=== PATIENT | female | born 1945 | race Caucasian/White ===

== ENCOUNTER 2019-07-06 10:44 | Observation (INO) | payer MEDICARE, BC ==
--- NOTE | 2019-07-06 11:04 | ED ---
Neurological HPI - HPI Summary HPI Summary: This patient is a 73 year old F presenting to [facility] with a chief complaint of spells since 4 days ago 07/02/19. Symptoms aggravated by nothing. Symptoms alleviated by nothing. Patient reports she was sent by doctor. Pt reports symptoms started 4 days ago when she bent over to fiber picker bag and got dizzy, vision went black, fell down steps. Pt reports LOC and denies diaphoretic at time of LOC but reports cold sweats (getting hot and cold) recently. Yesterday pt did not do much yet went to bathroom and had another spell where room was spinning, vision went black, and hit side on table leading to a possible broken toe (4th on right foot) and lateral pain (aggravated by movement). Denies sob, cough, gates, cp (no pressure or heaviness on chest), fever, erythema of eyes, sore throat, abdominal pain, N/V, dysuria, hematuria, myalgia, edema, rash. - History of Current Complaint Chief Complaint: EDDizziness Stated Complaint: DIZZY/SYNCOPE PER PT Time Seen by Provider: 07/06/19 10:52 Hx Obtained From: Patient Hx Last Menstrual Period: Years ago. Onset/Duration: Started days ago - 4, Still Present Pain Intensity: 0 Character: Room Spinning, Dizzy, Visual Changes - black Syncope Context: Loss of Consciousness: Yes Aggravating: Nothing Alleviating: Nothing Associated Signs and Symptoms: Positive: Visual Changes, Loss of Consciousness, Dizziness, Diaphoresis - cold sweats. Negative: Headache, Nausea/Vomiting, Fever, Chest Pain, Shortness of Breath - Allergy/Home Medications Allergies/Adverse Reactions: Allergies Allergy/AdvReac Type Severity Reaction Status Date / Time No Known Allergies Allergy Verified 07/06/19 10:50 Home Medications: Home Medications Calcium Carb, Citrate/Vit D3 [Calcium + D3 ER Tablet] 1 tab PO DAILY 07/06/19 [ History Confirmed 07/06/19] Metronidazole (TOPICAL)(NF) [Metrocream (NF)] 1 applic TOPICAL BEDTIME 07/06/19 [History Confirmed 07/06/19] Pravastatin (NF) [Pravachol (NF)] 10 mg PO DAILY 07/06/19 [History Confirmed ] dilTIAZem HCl [Diltiazem HCl ER] 180 mg PO DAILY 07/06/19 [History Confirmed ] PMH/Surg Hx/FS Hx/Imm Hx Endocrine/Hematology History: Denies: Hx Anticoagulant Therapy, Hx Diabetes, Hx Thyroid Disease Cardiovascular History: Denies: Hx Congestive Heart Failure, Hx Deep Vein Thrombosis, Hx Hypertension , Hx Myocardial Infarction, Hx Pacemaker/ICD Respiratory History: Denies: Hx Asthma, Hx Chronic Obstructive Pulmonary Disease (COPD), Hx Lung Cancer, Hx Pneumonia, Hx Pulmonary Embolism GI History: Denies: Hx Gall Bladder Disease, Hx Gastrointestinal Bleed, Hx Ulcer, Hx Urosepsis History: Denies: Hx Kidney Stones, Hx Renal Disease Neurological History: Denies: Hx Dementia, Hx Migraine, Hx Seizures, Hx Transient Ischemic Attacks (TIA) Psychiatric History: Denies: Hx Anxiety, Hx Depression, Hx Schizophrenia, Hx Bipolar Disorder - Cancer History Hx Chemotherapy: No Hx Radiation Therapy: No - Surgical History Surgery Procedure, Year, and Place: csection Infectious Disease History: No Infectious Disease History: Denies: History Other Infectious Disease, Traveled Outside the [place] in Last 30 Days - Family History Known Family History: Positive: Other - Parkinson's Negative: Diabetes - Social History Alcohol Use: None Hx Substance Use: No Substance Use Type: Reports: None Hx Tobacco Use: No Smoking Status (MU): Never Smoked Tobacco Review of Systems Positive: Skin Diaphoresis. Negative: Fever Negative: Erythema Negative: Sore Throat Negative: Chest Pain Negative: Shortness Of Breath, Cough Negative: Abdominal Pain, Vomiting, Nausea Negative: dysuria, hematuria Positive: Other - right 4th toe pain, lateral pain. Negative: Myalgia, Edema Negative: Rash Neurological: Other - spells (dizziness, room spinning, vision changes, LOC) Positive: Syncope. Negative: Headache All Other Systems Reviewed And Are Negative: Yes Physical Exam - Summary Physical Exam Summary: Constitutional: Well-developed, Well-nourished, Alert. (-) Distressed Skin: Warm, Dry HENT: Normocephalic; Atraumatic Eyes: Conjunctiva normal Neck: Musculoskeletal ROM normal neck. (-) JVD, (-) Stridor, (-) Tracheal deviation Cardio: Rhythm regular, rate normal, Heart sounds normal; Intact distal pulses; The pedal pulses are 2+ and symmetric. Radial pulses are 2+ and symmetric. (-) Murmur Pulmonary/Chest wall: (-) Respiratory distress, (-) Wheezes, small crackles in both bases Abd: Soft, (-) tenderness, (-) Distension, (-) Guarding, (-) Rebound Musculoskeletal:4th toe metatarsophalangeal joint in ecchymotic and tender to palpation, tenderness over left 3rd,4th,5th ribs laterally Lymph: (-) Cervical adenopathy Neuro: Neuro: Alert, Oriented x3, Strength normal, Cranial nerves II-XII are grossly intact. (-) Dysmetria, (-) Nystagmus, (-) Ataxia by finger to nose testing, (-) Sensory deficit. Psych: Mood and affect Normal Triage Information Reviewed: Yes Vital Signs On Initial Exam: Initial Vitals Temp Pulse Resp BP Pulse Ox 98.3 F 70 18 200/83 97 07/06/19 10:46 07/06/19 10:46 07/06/19 10:46 07/06/19 10:46 07/06/19 10:46 Vital Signs Reviewed: Yes Procedures - Sedation Patient Received Moderate/Deep Sedation with Procedure: No - Splinting Lower Extremity Location: right 4th toe to 3rd toe Hand-Made Type: issac tape Splint Applied by Provider: Arun Bustill[facility] - Vital Signs Vital Signs Temp Pulse Resp BP Pulse Ox 07/06/19 10:46 98.3 F 70 18 200/83 97 - Laboratory Result Diagrams: 07/06/19 11:11 07/06/19 11:11 Lab Statement: Any lab studies that have been ordered have been reviewed, and results considered in the medical decision making process. - Radiology Foot X-Ray Radiology Interpretation Completed By: Radiologist Summary of Radiographic Findings: Per radiologist,. 1. OSTEOPENIA WITH MINIMALLY IMPACTED FRACTURE ABOUT THE DISTAL SHAFT OF THE FOURTH. PROXIMAL PHALANX. 2. PLANTAR CALCANEAL ENTHESOPHYTE. Ed physician has reviewed this imaging report. Ribs w/ Chest X-Ray Radiology Interpretation Completed By: Radiologist Summary of Radiographic Findings: Per radiologist,. NO DISPLACED RIB FRACTURE OR PNEUMOTHORAX. ED physician has reviewed this imaging report. - CT Brain CT CT Interpretation Completed By: Radiologist Summary of CT Findings: Per radiologist,. NO ACUTE INTRACRANIAL PATHOLOGY. ED physician has reviewed this imaging report. - EKG 1055 Cardiac Rate: NL - 71 BPM Summary of EKG Findings: EKG taken at 1055 reveals sinus rhythm at 71 BPM and non-STEMI. Course/Dx - Course Assessment/Plan: This patient is a 73 year old F presenting to [facility] with a chief complaint of spells since 4 days ago 07/02/19. Pt reports symptoms started 4 days ago when she bent over to fiber picker bag and got dizzy, vision went black, fell down steps. Pt reports LOC and denies diaphoretic at time of LOC but reports cold sweats (getting hot and cold) recently. Yesterday pt did not do much yet went to bathroom and had another spell where room was spinning, vision went black, and hit side on table leading to a possible broken toe (4th on right foot) and lateral pain (aggravated by movement). Denies sob, cough, gates , cp (no pressure or heaviness on chest), fever, erythema of eyes, sore throat, abdominal pain, N/V, dysuria, hematuria, myalgia, edema, rash. Physical Exam Findings reveals no abnormalities except for 4th toe metatarsophalangeal joint in ecchymotic and tender to palpation, tenderness over left 3rd,4th,5th ribs laterally, small crackles in both bases. Full neuro exam was done and no abnormalities. EKG taken at 1055 reveals sinus rhythm at 71 BPM and non-STEMI. Foot X-Ray reveals 1. OSTEOPENIA WITH MINIMALLY IMPACTED FRACTURE ABOUT THE DISTAL SHAFT OF THE FOURTH. PROXIMAL PHALANX. 2. PLANTAR CALCANEAL ENTHESOPHYTE. Ribs w/ Chest X-Ray reveals NO DISPLACED RIB FRACTURE OR PNEUMOTHORAX. Brain CT reveals NO ACUTE INTRACRANIAL PATHOLOGY. ED physician has reviewed this radiology report and agrees. Test results with no significant abnormalities expect for MCH 32 H, Absolute Monos 0.9 H, Creatinine 0.97 H, BUN/Creatinine Ratio 21. 6 H, Glucose 117 H, Troponin I 0.06 H. In the ED course the patient was given Acetaminophen 975 mg PO. We discussed patient care with Dr. Jensen who accepts admission with dx of recurrent syncope, hypertensive crisis right 4th toe fracture. I will issac tape 4th to 3rd toe. I suspect labial blood pressure is likely hypertension related. Pt will follow up with orthopedics within 1 week. The patient is agreeable with this plan. - Diagnoses Provider Diagnoses: Recurrent syncope, Fracture of fourth toe, right, closed, Hypertensive crisis - Physician Notifications Discussed Care Of Patient With: Yadira Jensen Time Discussed With Above Provider: 13:00 Instructed by Provider To: Admit As Inpatient Discharge ED - Sign-Out/Discharge Documenting (check all that apply): Patient Departure - Admitted - Discharge Plan Disposition: ADMITTED TO [facility] Referrals: Loida Pina MD [Primary Care Provider] - - Attestation Statements Document Initiated by Scribe: Yes Documenting Scribe: Adrianne Stevens Provider For Whom Scribe is Documenting (Include Credential): Dr. Arun Bustillos MD Scribe Attestation: Adrianne Osuna, scribed for Dr. Arun Bustillos MD on 07/06/19 at 1306. Status of Scribe Document: Ready
[2019-07-06] MEDS ORDERED: Acetaminophen TAB* 325 MG PO ONE (11:05)
[2019-07-06 11:23] LABS: ABS Basophils 0.1 10^3/ul (0-0.2); ABS Eosinophils 0.1 10^3/ul (0-0.6); ABS Lymphocytes 1.5 10^3/ul (1.0-4.8); ABS Monocytes 0.9 10^3/ul (0-0.8); ABS Neutrophils 7.3 10^3/ul (1.5-7.7); Eosinophil % 1.4 %; Hematocrit 43 % (35-47); Hemoglobin 14.7 g/dL (12.0-16.0); Lymphocyte % 15.5 %; Mean Corpuscular HGB Conc 34 g/dL (31-36); Mean Corpuscular Hemoglobin 32 pg (27-31); Mean Corpuscular Volume 93 fL (80-97); Mean Platelet Volume 7.9 fL (7.4-10.4); Platelet Count 243 10^3/uL (150-450); Red Blood Count 4.62 10^6 /uL (3.70-4.87); Red Cell Distribution Width 13 % (10-15); White Blood Count 9.9 10^3/uL (3.5-10.8)
[2019-07-06 11:41] LABS: ALT 11 U/L (7-52); AST 18 U/L (13-39); Albumin 4.3 g/dL (3.2-5.2); Albumin/Globulin Ratio 1.3 (1-3); Alkaline Phosphatase 74 U/L (34-104); Anion Gap 10 mmol/L (2-11); BUN/Creatinine Ratio 21.6 (8-20); Blood Urea Nitrogen 21 mg/dL (6-24); CO2 Carbon Dioxide 23 mmol/L (22-32); Calcium 9.6 mg/dL (8.6-10.3); Chloride 107 mmol/L (101-111); EGFR African American 68.3 (>60); EGFR Non-African American 56.5 (>60); Globulin 3.4 g/dL (2-4); Glucose 117 mg/dL (70-100); Sodium 140 mmol/L (135-145); Total Protein 7.7 g/dL (6.4-8.9)
[2019-07-06 11:55] LABS: TSH (Thyroid Stimulating Horm) 1.26 mcIU/mL (0.34-5.60)
[2019-07-06] MEDS ORDERED: hydrALAZINE IV* 20 MG/ML VIAL IV SLOW PU PRN (13:46)
[2019-07-06 14:22] LABS: Troponin I 0.01 ng/mL (<0.03)
--- NOTE | 2019-07-06 16:30 | HP ---
CC: Dr. Loida Pina; Dr. Hooks HISTORY AND PHYSICAL: DATE OF ADMISSION: 07/06/19 TIME OF EVALUATION: 1:30 p.m. PRIMARY CARE PROVIDER: Dr. Loida Pina. CONSULTING VASCULAR TECHNOLOGIST SONOGRAPHER: Dr. Hooks. CHIEF COMPLAINT: "I passed out." HISTORY OF PRESENT ILLNESS: Ms. Balderrama is a 73-year-old female with a past medical history of obesit y with a BMI of 31, hypertension, hyperlipidemia, osteopenia, who presents to the emergency room afte r sustaining a syncopal episode at home. The patient states she was in her usual state of health until 07/02/19. She states that she was danilo g up stairs with some packages when she suddenly felt dizzy, lightheaded, and she had a syncopal epis ode and actually fell 7 stairs. She does not know for how long she was unconscious, but she woke up, was able to stand up independently. She denies any localized pain at that time. She states that af ter the episode she felt well, but on 07/05/19, she went to the bathroom to urinate and to have a bow el movement, and after she was done, she felt the same sensation of dizziness and lightheadedness and she knew she was going to pass out again, so she threw herself onto the couch, but still hit her pranav t on a cabinet and the left side of her chest on the couch. She does not know for how long she was u nconscious, but once again she regained consciousness and she did not seek medical attention. Today, she was feeling well, but decided to go see her primary care provider and she was referred to the emergency room. At the time of my interview, she states that she is feeling well. She denies chest pain, palpitation s, shortness of breath, or other complaints. She is very clear that between the episodes she felt we ll. PAST MEDICAL HISTORY: 1. Hypertension. 2. Hyperlipidemia. MEDICATION LIST: 1. Calcium plus vitamin D 1 tablet p.o. daily. 2. Cardizem CD 180 mg p.o. daily. 3. Metronidazole cream topical at bedtime. 4. Pravastatin 10 mg p.o. daily. ALLERGIES: No known drug allergies. FAMILY HISTORY: The patient's father of lung cancer, he was a smoker, and her mother of Pa rkinson disease. SOCIAL HISTORY: The patient denies a history of tobacco, alcohol, or drug use. She is retired and laws rrogate decision maker is her , Iggy Balderrama, phone number is [phone]. REVIEW OF SYSTEMS: A 14-point review of systems was performed and all the pertinent negative and pos itive findings are in the HPI. PHYSICAL EXAMINATION GENERAL: The patient is a pleasant elderly lady, lying in the ED stretcher, in no acute distress. VITAL SIGNS: Temperature 98.3, heart rate is 61, respiratory rate is 17, oxygen saturation is 97% on room air, blood pressure is 168/72. HEENT: Pupils are equal. Moist mucous membranes. CHEST: Breath sounds present bilaterally with no added sounds. CVS: Normal S1, S2. Regular rate and rhythm. ABDOMEN: Obese, soft, nontender, nondistended. Bowel sounds present. EXTREMITIES: No edema. NEURO: She is alert and oriented x3. Able to move all 4 extremities. Face is symmetric. Speech is clear. DIAGNOSTIC STUDIES/LAB DATA: The patient had a CBC that showed a WBC of 9.9, hemoglobin of 14.7, he matocrit of 43, platelets of 243 with 73% neutrophils. Chemistry showed a sodium of 140, potassium of 4, chloride of 107, bicarb of 23, BUN of 21, creatinine of 0.97, glucose of 117, lactic acid is 0.9, calcium is 9.6, magnesium is 2.0. LFTs were normal. First troponin is 0.06. TSH is 1.26. EKG done on 07/06/19 at 10:55 a.m. shows sinus rhythm at 71 beats per minute with flat T-waves in V5 and V6. There is no prior EKG to compare. CT brain without contrast: No acute intracranial pathology. Chest x-ray/ribs showed no displaced rib fracture or pneumothorax. Right foot x-ray showed osteopenia with minimally impacted fracture about the distal shaft of the fou rth proximal phalanx with a plantar calcaneal enthesophyte. ASSESSMENT AND PLAN: Ms. Balderrama is a 73-year-old female with a past medical history of hypertension, hyperlipidemia, who presented to the emergency room after 2 syncopal episodes at home. 1. Syncope. I am suspicious that the patient's syncopal episode is secondary to bradyarrhythmia. H er heart rate is in the 60s now, but she is on diltiazem as an outpatient and I discussed with Cardio logy. For now, we are going to continue the medication and monitor on telemetry to see if this is pr ompting her symptoms. She will have an echocardiogram, although I did not hear any murmur during my physical examination. She will be seen in consultation by Dr. Hooks. The patient also has minimal t roponin elevation and she has T-wave flattening in the lateral leads, but there is no prior EKG to co mpare. She did not have chest pain associated with her syncopal episode. 2. Hypertension. It is a little on the higher side at this time. We will continue to monitor for n ow and also check orthostatics. 3. Hyperlipidemia. Continue statin. 4. DVT prophylaxis: The patient has a score of 3 on the DVT Prophylaxis Risk Assessment Guide. She will be started on subcutaneous heparin. 5. Code status is full. TIME SPENT: Approximately 45 minutes was spent with the patient's interview, medical records review, physical examination to complete this admission, more than half of this time was spent [id number] with the patient and coordination of care. [id number]/[facility] #: [id number]
[2019-07-06] MEDS: Heparin VIAL(*) 5000 UNITS/ML VIAL (FIVE THOUSAND) SUBCUT SCH ×2 (18:50→20:40)
--- NOTE | 2019-07-06 19:31 | CONS ---
CARDIOLOGY CONSULTATION: DATE OF CONSULT: 07/06/19 INDICATION FOR CONSULTATION: Syncope. HISTORY OF PRESENT ILLNESS: The patient is a 73-year-old woman with a history of hypertension and hyperlipidemia who came to the hospital because of syncopal episodes. The patient states that last week she had gone [place] shopping and had placed some packages at the bottom of the stairs. She went to pick them up and start taking them up the stairs when she all of a sudden felt very dizzy and felt like she was going to pass out. She saw the room graying out. She did stand next to the stairs for a while and then actually passed out. She was able to get to the couch and lied on the couch for a couple of hours. After she had the true syncopal episode, she had no other symptoms. She did not have any headache. She did not have any chest pain. No nausea, just felt completely exhausted. The patient states when she had the episode, she denied any palpitations. She denied any chest pain. The rest of the day, she felt fine. She said yesterday she had another episode. She was in the bathroom. She was sitting on the toilet and all of a sudden felt that awful spinning feeling, blacking out, and thinks she passed out on the toilet itself. She woke up and tried to leave the bathroom. She ran into the cabinet and bruised the left side of her ribs. She was able to make it to the couch and lied down and thinks she had another passing-out episode. When she woke up again, she felt fine. She just felt somewhat fatigued. She did not have any palpitations. No chest pain. No headache. She did feel somewhat nauseous when she first woke up. She denies any other symptoms. She denies any symptoms similar to these in the distant past. The patient went to see her primary care physician, who referred her to the emergency room. PAST MEDICAL HISTORY: Significant for hypertension and hyperlipidemia. OUTPATIENT MEDICATIONS: 1. Calcium tablets. 2. Cardizem CD 180. 3. Pravastatin 10 mg a day. ALLERGIES: No known drug allergies. FAMILY HISTORY: Her father of lung cancer and her mother of Parkinson disease. SOCIAL HISTORY: She denies tobacco or alcohol use. She is retired. She lives with her . She denies any regular exercise. REVIEW OF SYSTEMS: Negative for fever and chills. Negative for changes in bowel or bladder habits. Negative for change in weight. 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 PHYSICAL EXAM: Height is 5 feet 5 inches, weight is 191 pounds. Temperature 98.2, heart rate is 61, blood pressure 177/76, respiratory rate is 16, oxygen saturation 98% on room air. HEENT: Sclerae anicteric. Oropharynx is pink without erythema. Carotids are 2+ without bruits. JVD is normal. Thyroid is normal. Cardiac Exam: S1, S2 without any murmurs, rubs or gallops. PMI is normal. Lungs are clear to auscultation bilaterally. There is no dullness to percussion. Abdomen is soft, nontender, nondistended with normoactive bowel sounds. Extremities: Show no edema. She has 2+ pulses throughout. The patient is awake, alert, and oriented. She moves all 4 extremities equally. DIAGNOSTIC STUDIES/LAB DATA: Chemistries within normal limits. BUN and creatinine are normal. TSH is normal. Troponins are negative x2. CBC within normal limits. EKG shows normal sinus rhythm with normal axis and intervals. Borderline LVH. IMPRESSION AND PLAN: This is a 73-year-old woman who has had 2 episodes of syncope of unclear etiology. At this point, I am very concerned about an arrhythmia as the cause for her symptoms. It does not sound terribly orthostatic as the cause for her symptoms and she has not had any recent changes in her medications. She is on diltiazem , but I do not believe that that dose of medication could cause that degree of bradycardia or hypotension to cause her to have syncopal episodes. For now, my recommendation is to observe the patient on telemetry. I would like to have the patient undergo an echocardiogram and perhaps a treadmill stress test to see if she has any chronotropic incompetence. Further recommendations pending her workup. At this point, I will continue her on her same medications. [id number]/[facility] #: [id number] MTDD
[2019-07-06] MEDS: Acetaminophen TAB* 325 MG PO PRN (20:39)
[2019-07-07] MEDS: Heparin VIAL(*) 5000 UNITS/ML VIAL (FIVE THOUSAND) SUBCUT SCH ×3 (05:10→21:01)
[2019-07-07] MEDS ORDERED: VIT D3 PO SCH (09:00)
[2019-07-07] MEDS ORDERED: CALCIUM CARB CITRATE PO SCH (09:00)
[2019-07-07] MEDS ORDERED: Pravastatin (NF) 10 MG TAB PO SCH (09:00)
--- NOTE | 2019-07-07 09:28 | HP ---
CC: Dr. Loida Pina HISTORY AND PHYSICAL: ADDENDUM: ASSESSMENT AND PLAN: Right fourth proximal phalanx fracture. This was discussed with the emergency room provider and the recommendation was for "issac tape" the toe and the patient will follow up with orthopedist as outpatient. [id number]/[facility] #: [id number] MTDD
[2019-07-07] MEDS: Diltiazem CD CAP* 180 MG PO SCH (09:49)
[2019-07-07] MEDS: Calcium/Vitamin D TAB 250/125* TAB PO SCH (09:49)
[2019-07-07] MEDS: CMCS - Pravastatin (NF) 20 MG TAB PO SCH (10:14)
--- NOTE | 2019-07-07 11:11 | ECHO ---
*[facility]* [place] [address] Fax #: [phone] Transthoracic Echocardiogram Patient: Katherin Balderrama : 1945 Study Date: 07/07/2019 Age: 73 Gender: F HR: 63 bpm Height: 65 in /165.1 cm BSA: 1.94 m^2 Weight: 190.6 lb /86.6 kg BMI: 31.8 kg/m^2 *Skiagrapher: * Fern Vega RD *Referring Physician: * Yadira WuReading Physician: * Torsten Hooks MD Indications: Syncope. History: Risk factors: Hypertension. Dyslipidemia. Conclusions Summary: - Left ventricle: Systolic function is normal. The estimated ejection fraction is 55-60%. Wall motion is normal; there are no regional wall motion abnormalities. - Mitral valve: There is trace regurgitation. - Aortic valve: There is no evidence of stenosis. - Tricuspid valve: There is trace to mild regurgitation. - Pulmonary arteries: Systolic pressure is within the normal range. - Study data: No prior study is available for comparison. Study data: Transthoracic echocardiogram. Procedure: Transthoracic echocardiography was performed. Image quality was fair. Complete 2D, spectral Doppler, and color flow Doppler. Location: Bedside. Patient status: Inpatient. Patient room number: 446-02. No prior study is available for comparison. Rhythm: Normal sinus rhythm with PVC's. Findings Left ventricle: The cavity size is normal. Wall thickness is mildly increased. Systolic function is normal. The estimated ejection fraction is 55-60%. Wall motion is normal; there are no regional wall motion abnormalities. Doppler parameters are consistent with abnormal left ventricular relaxation (grade 1 diastolic dysfunction). Right ventricle: The cavity size is normal. Systolic function is normal. Systolic pressure is within the normal range. Left atrium: The atrium is normal in size. Right atrium: The atrium is normal in size. Mitral valve: The leaflets are mildly thickened. There is no evidence of stenosis. There is trace regurgitation. Aortic valve: The valve is trileaflet. The leaflets are mildly thickened. There is no evidence of stenosis. There is trace regurgitation. Tricuspid valve: The leaflets are normal thickness. There is no evidence of stenosis. There is trace to mild regurgitation. Pulmonic valve: The leaflets are normal thickness. There is no evidence of stenosis. There is trace regurgitation. Aorta: Aortic root: The aortic root is appears normal. Ascending aorta: The ascending aorta is upper normal in size. Aortic arch: The aortic arch is appears normal. Pericardium: There is no significant pericardial effusion. Pulmonary arteries: The main pulmonary artery is normal-sized. Systolic pressure is within the normal range. Systemic veins: Inferior vena cava: The vessel is normal in size. There is (>= 50%) respiratory change in the IVC dimension. Measurements Left ventricle Value Ref Aortic valve Value Ref EMMA, LAX 4.8 cm 3.8 - 5.2 Cynthia diam, ED 1.8 cm ----- ESD, LAX 3.0 cm 2.2 - 3.5 Peak v, S 1.2 m/sec ----- FS, LAX 38 % 27 - 45 VTI, S 26.8 cm ----- PW, ED, LAX (H) 1.1 cm 0.6 - 0.9 Mean grad, S 3.0 mm Hg ----- FS 38 % 27 - 45 LVOT/AV, VTI ratio 0.75 ----- PW, ED (H) 1.1 cm 0.6 - 0.9 E', lat cynthia, TDI (L) 5.7 cm/sec >=10.0 Mitral valve Value Ref E/e', lat cynthia, 9 Peak E 0.53 m/sec ----- TDI Peak A 1.06 m/sec ----- E', med cynthia, TDI (L) 4.6 cm/sec >=7.0 Decel time 236 ms --- -- E/e', med cynthia, 12 Peak E/A ratio 0.5 ----- TDI E', avg, TDI 5.2 cm/sec Pulmonic valve Value Ref E/e', avg, TDI 10 <=14 Peak v, S 0.99 m/sec --- -- Peak grad, S 4.0 mm Hg ----- LVOT Value Ref Peak rui, S 0.89 m/sec Tricuspid valve Value Ref VTI, S 20.0 cm TR peak v 2.3 m/sec <=2.8 Mean grad, S 2 mm Hg Peak RV-RA grad, S 21 mm Hg ----- Ventricular septum Value Ref Aortic root Value Ref IVS, ED (H) 1.0 cm 0.6 - 0.9 Root diam 3.0 cm <4.1 Right ventricle Value Ref Ascending aorta Value Ref EMMA, LAX 3.0 cm AAo AP diam, S 3.6 cm ----- EMMA minor ax, A4C 3.3 cm 1.9 - 3.5 mid Aortic arch Value Ref Pressure, S 24 mm Hg Arch diam 2.4 cm ----- Left atrium Value Ref Decending aorta Value Ref AP dim, ES (H) 3.90 cm 2.70 - Anastasiya peak rui 0.65 m/sec ----- 3.80 ML dim, A4C 4.0 cm Pulmonary artery Value Ref SI dim, A4C 5.0 cm Pressure, S 20.0 mm Hg ----- Vol/bsa, ES, 1-p 18 ml/m^2 11 - 40 A4C Inferior vena cava Value Ref Vol/bsa, ES, A/L 23 ml/m^2 16 - 34 Diam 2.0 cm ----- Right atrium Value Ref SI dim, ES 4.7 cm 3.4 - 5.3 ML dim, ES, A4C 4.1 cm 2.6 - 4.4 Estimated RAP 3 mm Hg Legend: (L) and (H) lei values outside specified reference range. Prepared and electronically signed by Torsten Hooks MD 07/07/2019 11:10
[2019-07-07] MEDS: Acetaminophen TAB* 325 MG PO PRN (15:36)
--- NOTE | 2019-07-07 20:20 | PN ---
Subjective Date of Service: 07/07/19 Interval History: patient seen today, denies any dizziness or chest pain. cardiology input appreciated. cleared from cardiac point of view for discharge. BP remain elevated she has required prn hydralazine for SBP above 180. I will start her on lisinopril 10 mg daily first dose tonight Past Medical History: Unchanged from Admission Objective Active Medications: Acetaminophen (Tylenol Tab*) 650 mg PO Q6H PRN PRN Reason: MILD PAIN or TEMP > 100.4 Last Admin: 07/07/19 15:36 Dose: 650 mg Calcium/Vitamin D (Oscal D Tab 250/125*) 1 tab PO DAILY [facility] Last Admin: 07/07/19 09:49 Dose: 1 tab Diltiazem HCl (Cardizem Cd Cap*) 180 mg PO DAILY [facility] Last Admin: 07/07/19 09:49 Dose: 180 mg Heparin Sodium (Porcine) (Heparin Vial(*)) 5,000 units SUBCUT Q8HR [facility] Last Admin: 07/07/19 15:32 Dose: 5,000 units Hydralazine HCl (Apresoline Iv*) 5 mg IV SLOW PU Q6H PRN PRN Reason: SBP>180 Last Admin: 07/07/19 16:32 Dose: 5 mg Lisinopril (Prinivil Tab*) 10 mg PO DAILY [facility] Pravastatin Sodium (Pravachol (Nf)) 10 mg PO DAILY [facility] Last Admin: 07/07/19 10:14 Dose: 10 mg Vital Signs - 8 hr 07/07/19 07/07/19 15:15 18:09 Temperature 98.2 F Pulse Rate 74 Respiratory 16 Rate Blood Pressure 183/89 149/65 (mmHg) O2 Sat by Pulse 97 Oximetry Oxygen Devices in Use Now: None Appearance: awake, alert no distress. taking po well Ears/Nose/Mouth/Throat: NL Teeth, Lips, Gums, Mucous Membranes Moist Neck: NL Appearance and Movements; NL JVP, Trachea Midline Respiratory: Symmetrical Chest Expansion and Respiratory Effort, Clear to Auscultation Cardiovascular: NL Sounds; No Murmurs; No JVD, RRR, No Edema Abdominal: NL Sounds; No Tenderness; No Distention Extremities: No Edema Result Diagrams: 07/06/19 11:11 07/06/19 11:11 Assess/Plan/Problems-Billing Assessment: 73 y/o female admitted for syncope x 2 appears to be vasovagal but also have significant hypertension SBP >200 on presentations - Patient Problems (1) Syncope and collapse Current Visit: Yes Status: Acute Code(s): R55 - SYNCOPE AND COLLAPSE SNOMED Code(s): 626485547 Comment: - Etiology unclear - Both events occured with activity that inrease vagal tone (once during bowel movement...and second occured while carrying a box going up the stairs) - nonetheless her BP is quite elevated which could have cause symptomatic dizziness and fall. - will check carotid US - Echo was unremarkable - CT brain negative. Will benefit from outpatient MRI of brain - she did have fracture of her 4th toe. no rib fractures (2) Hypertension Current Visit: Yes Status: Acute Code(s): I10 - ESSENTIAL (PRIMARY) HYPERTENSION SNOMED Code(s): 52532678 Comment: - SBP >200 on admission - Will add lisinopril 10 mg daily - Continue current cardizem dose - She did require prn hydralazine (3) Hyperlipidemia Current Visit: Yes Status: Acute Code(s): E78.5 - HYPERLIPIDEMIA, UNSPECIFIED SNOMED Code(s): 58126466 (4) DVT prophylaxis Current Visit: Yes Status: Acute Code(s): Z29.9 - ENCOUNTER FOR PROPHYLACTIC MEASURES, UNSPECIFIED SNOMED Code(s): 712551741 Comment: - Heparin SQ
[2019-07-07] MEDS: Lisinopril TAB* 10 MG PO SCH (21:01)
[2019-07-08] MEDS: Heparin VIAL(*) 5000 UNITS/ML VIAL (FIVE THOUSAND) SUBCUT SCH ×2 (05:15→14:42)
[2019-07-08] MEDS: Diltiazem CD CAP* 180 MG PO SCH (08:36)
[2019-07-08] MEDS: CMCS - Pravastatin (NF) 20 MG TAB PO SCH (08:37)
[2019-07-08] MEDS: Lisinopril TAB* 10 MG PO SCH (08:37)
[2019-07-08] MEDS: Calcium/Vitamin D TAB 250/125* TAB PO SCH (08:37)
[2019-07-08] MEDS: Acetaminophen TAB* 325 MG PO PRN (08:45)
[2019-07-08 15:16] VITALS: BP 129/75
--- NOTE | 2019-07-08 20:41 | DS ---
CC: Dr. Loida Pina; Dr. Torsten Hooks * DISCHARGE SUMMARY: DATE OF ADMISSION: 07/06/19 DATE OF DISCHARGE: 07/08/19 PRIMARY CARE PROVIDER: Dr. Loida Pina and Dr. Torsten Hooks. FINAL DISCHARGE DIAGNOSES: 1. Syncope and collapse. 2. Hypertension. 3. Incidental thyroid nodule on her carotid ultrasound. 4. Hyperlipidemia. HOSPITAL COURSE: The patient presented to [facility] on 07/06/19 for evaluation after 2 syncopal episodes, both occurred at home. One incident was while she was carrying a box up the stairs, she woke up down the stairs and the other incident occurred while she was in the bathroom, felt very dizzy, lightheaded and nauseous, flushed and was unconscious. At that time in the emergency room, the patient was seen and evaluated. Her initial workup did not reveal any significant arrhythmia. Her EKG showed sinus rhythm with nonspecific flattening of the T-wave V5, V6. CT of the brain was unremarkable and chest x-ray did not show any rib fracture or pneumothorax. An incidental shows fracture on her foot of the base of her fourth toe. She was admitted to Medicine. She was placed on telemetry. Cardiology consultation was obtained. She had 2 sets of troponin 3 hours apart, it was unremarkable. Thyroid was normal at 1.26. CBC unremarkable and it was noted on her vitals to have significantly elevated blood pressure with a systolic over 200 on presentation and 201; therefore, she was placed on hydralazine for p.r.n. blood pressure control. Cardiology did see the patient. I discussed the case with Dr. Torsten Hooks. At that time, he did not recommend any further workup, recommended outpatient followup for possible ambulatory Holter monitor or further stress testing. The patient also had echocardiogram which revealed normal LV function dated 07/06/19. Her EF was 55% to 60%, normal wall motion. No significant valvular disease. Carotid ultrasound was obtained, which shows no significant stenosis, incidental thyroid nodule was noted, who recommended outpatient ultrasound for further evaluation. Nodule size was 1.1 x 0.7 cm. Therefore, yesterday evening after noticing blood pressures arranging in the 180s systolically, added lisinopril 10 mg daily, kept her overnight under observational status and her blood pressure since has been better controlled 140 /73, 130/64, 149/69. I saw and evaluated the patient this morning, she has been symptom free. She has used the bathroom without any further dizziness or lightheadedness. No syncopal episode. Her tele was unremarkable; therefore, I deemed her stable for discharge. With close followup with her primary and referral to Dr. Torsten Hooks as recommended. I asked the patient to call and she is expecting a phone call from Dr. Torsten Hooks's office as she was instructed. Nonetheless, she was advised to set up an appointment with him within 1 to 2 weeks and further workup with ambulatory Holter monitor is warranted. PHYSICAL EXAMINATION: Vital Signs: Temperature 98.3, pulse 65, respirations 16 , blood pressure 149/69. General: She is awake, alert, pleasant, obese. Neck : Supple. Extraocular muscles intact. Lungs: Clear to auscultation bilateral. Cardiovascular: S1, S2. Regular rate and rhythm. Abdomen: Positive bowel sounds. Soft, nontender, nondistended. Extremities: No pedal edema. DIAGNOSTIC STUDIES/LAB DATA: She had echocardiogram done on 07/06/19, normal ejection fraction, no evidence of wall motion abnormality. Foot x-ray shows fracture at the shaft of the fourth and proximal phalanx. Rib and chest x-ray, no fractures. CT brain unremarkable, no acute pathology. Carotid ultrasound, no stenosis, incidental 1 cm thyroid nodule. DISCHARGE MEDICATIONS: 1. Calcium. 2. Diltiazem 180 daily. 3. Pravachol 10 daily. 4. Tylenol p.r.n. 5. Lisinopril 10 daily. New prescription for lisinopril was provided. DISCHARGE RECOMMENDATIONS: 1. Follow up with primary care in 1 to 2 weeks. 2. Follow up with Dr. Torsten Hooks as instructed during this consultation. 3. Take all medications as prescribed. [id number]/[facility] #: [id number] [facility]
--- NOTE | 2019-07-11 20:49 | DS ---
DISCHARGE SUMMARY: ADDENDUM: DATE OF DISCHARGE: 07/08/19 DISCHARGE DISPOSITION: Home. DISCHARGE CONDITION: Stable. [id number]/[facility] #: [id number]
== END 2019-07-08 15:19 | disposition home or self-care (01) ==
LOC: ED 10:44 → MEDTELE 13:34 → ED 14:31
PROVIDERS: ADMIT Internal Medicine; ATTEND Internal Medicine
DX: R55 Syncope and collapse (principal); I10 Essential (primary) hypertension; E04.1 Nontoxic single thyroid nodule; E78.5 Hyperlipidemia, unspecified; Z79.899 Other long term (current) drug therapy; M85.871 Other specified disorders of bone density and structure, right ankle and foot; S92.514A Nondisplaced fracture of proximal phalanx of right lesser toe(s), initial encounter for closed fracture; W10.9XXA Fall (on) (from) unspecified stairs and steps, initial encounter; Y92.9 Unspecified place or not applicable
CPT/HCPCS: 36415; 70450; 80053; 83605; 83735; 84443; 84484; 85025; 93005; 93306; 93880; 96372; 96375; 99284; A9270-GY; G0378; J0360; J1644